=== PATIENT | female | born 1955 | race Caucasian/White ===

== ENCOUNTER 2019-09-25 23:27 | Emergency (ER) | payer MEDICARE, MEDICAID ==
[~2019-09-25] VITALS: Ht 160 cm; Wt 85.7 kg
[~2019-09-25 23:27] MED LIST: ACET325T53 PO; AMLO10TA7 PO; BISA10SU12 PR; CLON0.1T PO; DOCU-270 PO; ENTA200T PO; FAMO-131 PO; HYDR-3974 PO; HYDR28CR48 TOP; IPRA3AMP23 INH; MAGN400O6 PO; MVI PO; NITR0.4T SL; PRED1TAB PO; SENN-18 PO; [UNRECOGNIZED DRUG - CODE] SQ
[2019-09-25 23:45] VITALS: BP 146/87
[2019-09-26] MEDS ORDERED: HYDROCODONE/APAP 5/325MG 1 EACH TABLET PO ONE
[2019-09-26] MEDS ORDERED: HYDROCODONE/APAP 5/325MG 1 EACH TABLET ONE (00:03)
--- NOTE | 2019-09-26 00:15 | NUR ---
REPORT GIVEN TO EVGENY AT [facility].
[2019-10-25] MEDS ORDERED: DOCU-270 PO (14:51)
[2019-10-25] MEDS ORDERED: METH4TAB3 PO (14:51)
[2019-10-25] MEDS ORDERED: APIX5TAB PO (14:51)
== END 2019-09-26 00:17 | disposition home or self-care (01) ==
LOC: ER 23:33
DX: G89.29 Other chronic pain (principal); M79.662 Pain in left lower leg; M79.661 Pain in right lower leg; F03.90 Unspecified dementia, unspecified severity, without behavioral disturbance, psychotic disturbance, mood disturbance, and anxiety; I10 Essential (primary) hypertension; Z88.8 Allergy status to other drugs, medicaments and biological substances; Z79.899 Other long term (current) drug therapy; Z79.01 Long term (current) use of anticoagulants

== ENCOUNTER 2019-10-15 19:55 | Inpatient (IN) | payer MEDICARE, MEDICAID ==
[~2019-10-15] VITALS: Ht 160 cm; Wt 98.4 kg
--- NOTE | 2019-10-15 20:00 | NUR ---
PT BIBPA C/O PRODUCTIVE COUGH WITH CLEAR SPUTUM X1 WEEK. PT ALSO C/O CHEST PAIN WITH COUGH. PT STATES SHE WAS SEEN BY PMD EARLIER THIS WEEK, DX WITH BRONCHITIS AND PRESCRIBED LEVAQUIN, PT STATES SYMPTOMS HAVE NOT RESOLVED. O2 SAT 90% ON ROOM AIR, PT STATES SHE IS NORMALLY 2L NC. PT IS AAOX4. RESPIRATIONS EVEN AND UNLABORED. NO ACUTE DISTRESS NOTED AT THIS TIME. PLACED IN GOWN AND ON MONITOR, WILL CONTINUE TO MONITOR.
[2019-10-15] MEDS ORDERED: Magnesium 1GM/D5W 100ML PREMIX 200 ML IV ONE ×2 (20:47→21:11)
--- NOTE | 2019-10-15 20:55 | NUR ---
RADIOLOGY AT BEDSIDE FOR CXR
--- NOTE | 2019-10-15 20:57 | NUR ---
IV INITIATED RAC 20G. LABS DRAWN FROM SITE. SUGAR COATING HAND AT BEDSIDE FOR COLLECTION. IV INTACT AND PATENT, PLACED ON SALINE LOCK
[2019-10-15] MEDS ORDERED: IV NS 0.9% 1,000 ML BAG IV ONE (21:00)
[2019-10-15] MEDS ORDERED: ALBUTEROL FS 2.5 MG/3 ML VIAL.NEB NEB ONE (21:00)
[2019-10-15] MEDS ORDERED: IPRATROPIUM NEB FS 0.5 MG/2.5 ML AMPUL.NEB NEB ONE (21:00)
[2019-10-15] MEDS ORDERED: methylPREDNISolone SOD SUCC 125 MG/2ML VIAL IV ONE (21:00)
[2019-10-15 21:02] LABS: BASOPHILS % (AUTO) 0.2 % (0.0-2.0); EOSINOPHILS % (AUTO) 1.9 % (0.0-6.0); HEMATOCRIT 40 % (33-45); HEMOGLOBIN 13.3 g/dL (11.5-14.8); LYMPHOCYTES # (AUTO) 0.7 /CMM (0.8-4.8); LYMPHOCYTES % (AUTO) 14.2 % (20.0-44.0); MEAN CORPUSCULAR HGB CONC 33 g/dl (31.0-36.0); MEAN CORPUSCULAR VOLUME 93 fL (82-100); MONOCYTES # (AUTO) 0.4 /CMM (0.1-1.30); MONOCYTES % (AUTO) 7.7 % (2.0-12.0); NEUTROPHILS # (AUTO) 3.9 /CMM (1.8-8.9); PLATELET COUNT (AUTO) 223 /CMM (150-450); RED BLOOD CELL COUNT(AUTO) 4.31 MIL/uL (4.0-5.2); WHITE BLOOD COUNT (AUTO) 5.1 K/uL (4.3-11.0)
[2019-10-15] MEDS ORDERED: ALBUTEROL FS 2.5 MG/3 ML VIAL.NEB ONE (21:03)
[2019-10-15] MEDS ORDERED: IPRATROPIUM NEB FS 0.5 MG/2.5 ML AMPUL.NEB ONE (21:03)
--- NOTE | 2019-10-15 21:09 | NUR ---
RT AT BEDSIDE FOR BREATHING TREATMENT
[2019-10-15 21:10] LABS: CALCIUM, SERUM 9.5 mg/dL (8.5-10.1); CREATININE 0.6 mg/dL (0.6-1.3)
[2019-10-15] MEDS ORDERED: methylPREDNISolone SOD SUCC 125 MG/2ML VIAL ONE (21:11)
--- NOTE | 2019-10-15 21:28 | NUR ---
URINE COLLECTED AND SENT TO LAB
--- NOTE | 2019-10-15 21:30 | NUR ---
PER VERBAL MD ORDER, WILL HOLD 1L NS
[2019-10-15 21:44] LABS: APPEARANCE,URINE Clear (CLEAR); BILIRUBIN,URINE Negative (NEGATIVE); BLOOD, URINE Small Ery/uL (NEGATIVE); COLOR,URINE Yellow (YELLOW); KETONES,URINE Negative (NEGATIVE); LEUKOCYTE ESTERASE ,URINE Negative (NEGATIVE); NITRITE, URINE Negative (NEGATIVE); PROTEIN,URINE Negative (NEGATIVE); UGLUCOSE Negative (NEGATIVE); UROBILINOGEN,URINE 0.2 EU/dL (0.2)
--- NOTE | 2019-10-15 21:49 | NUR ---
DR FRANKLIN HA FOR PANEL
--- NOTE | 2019-10-15 21:55 | NUR ---
CALLED NURSING SUP FOR BED
[2019-10-15 21:57] LABS: BACTERIA,URINE Few /HPF (None Seen); WBC,URINE 0-2 /HPF (0-3)
[2019-10-15 21:58] LABS: SQUAMOUS EPITHELIAL CELL,UR Few /HPF (None Seen)
--- NOTE | 2019-10-15 21:58 | NUR ---
RECIEVED BED 313-2
--- NOTE | 2019-10-15 22:12 | NUR ---
GAVE REPORT TO KIERAN SMART FOR DAX
--- NOTE | 2019-10-15 22:20 | NUR ---
PT TRANSFERRED PER [facility] PROTOCOL
[2019-10-15 22:30] VITALS: BP 155/76
--- NOTE | 2019-10-15 22:40 | NUR ---
CHEESE MAKER NOTE PT ARRIVED TO FLOOR VIA GURNEY ACCOMPANIED BY ER STAFF. PT IN STABLE CONDITION A/O X4, NO SIGNS OF DISTRESS, ON 2LPM NC. IV IN R AC#[address] S/L. TELE MONITOR: SR 95. ALL CURRENT NEEDS ATTENDED TO. BED LOW, LOCKED UPPER RAILS UP AND CALL LIGHT WITHIN REACH. BODY ASSESSED, AND ALL BELONGINGS ACCOUNTED AND SIGNED FOR. MADE AWARE OF PT ARRIVAL. WILL CONT. TO MONITOR.
[2019-10-15] MEDS ORDERED: ACETAMINOPHEN 325 MG TABLET PO PRN (23:00)
[2019-10-15] MEDS ORDERED: ACETAMINOPHEN 325 MG TABLET PO SCH (23:00)
[2019-10-15] MEDS ORDERED: NITROGLYCERIN 0.4 MG/TAB BOTTLE SL PRN (23:00)
[2019-10-15] MEDS ORDERED: BENZONATATE 100 MG CAPSULE PO PRN (23:00)
[2019-10-15] MEDS ORDERED: MAGNESIUM HYDROXIDE 30 ML UDC PO PRN (23:00)
[2019-10-15] MEDS ORDERED: ONDANSETRON HCL/PF 4 MG/2 ML VIAL IVP PRN (23:00)
[2019-10-15] MEDS ORDERED: Z GUARD REMEDY 2 OZ OINT TP PRN (23:00)
[2019-10-15] MEDS ORDERED: ZOLPIDEM TARTRATE 5 MG TABLET PO PRN (23:00)
[2019-10-15] MEDS ORDERED: GUAIFENESIN/D-METHORPHAN HB 5 ML UDC PO PRN (23:00)
[2019-10-15] MEDS: ENOXAPARIN SODIUM 40 MG/0.4 ML DISP.SYRIN SQ SCH (23:06)
[2019-10-15] MEDS ORDERED: LEVOFLOXACIN 500 MG /D5W 100ML 100 ML IV ONE (23:54)
[2019-10-15] MEDS: LEVOFLOXACIN 500 MG /D5W 100ML 500 MG in PREMIX 1 EA IV SCH (23:57)
[2019-10-15] MEDS: methylPREDNISolone SOD SUCC 40 MG/ML VIAL IV SCH (23:57)
[2019-10-16] VITALS: BP 151/79
[2019-10-16] MEDS ORDERED: Medication Not On Formulary EA (Ipratropium/Albuterol Sulfate (Duoneb 2.5-0.5 Mg/3 Ml So INH SCH
[2019-10-16] MEDS ORDERED: HYDROCODONE/APAP 5/325MG 1 EACH TABLET PO SCH
--- NOTE | 2019-10-16 00:02 | NUR ---
STORE CONSULTANT NOTE MADE MD AWARE OF DNR CODE STATUS. STATES HE WILL PUT ORDER IN.
[2019-10-16] MEDS: ALBUTEROL HALF STRENGTH 1.25 MG/3 ML VIAL.NEB NEB SCH ×5 (00:19→19:25)
--- NOTE | 2019-10-16 01:18 | NUR ---
VISUAL INSPECTOR NOTE NOTIFIED MD THAT PT IS STILL SHORT OF BREATH. NEW ORDERS NOTED AND CARRIED OUT. WILL ENDORSE TO RT. AND CONT TO MONITOR.
[2019-10-16] MEDS: ALBUTEROL FS 2.5 MG/3 ML VIAL.NEB NEB SCH ×3 (01:32→02:08)
[2019-10-16] MEDS: IPRATROPIUM NEB FS 0.5 MG/2.5 ML AMPUL.NEB NEB SCH ×3 (01:32→02:08)
[2019-10-16] MEDS: ACETYLCYSTEINE 10% SOLN 400 MG/4 ML VIAL NEB SCH ×4 (01:32→23:30)
--- NOTE | 2019-10-16 02:28 | NUR ---
RT NOTE ADMINISTERED 3 DOSES OF ALBUTEROL 2.5 MG AND ATROVENT 0.5 MG TX'S PER MD ORDER. NO ADVERSE REACTIONS NOTED. NO DISTRESS NOTED AT THIS TIME. WILL REMAIN ON 28% NASAL CANNULA.
[2019-10-16] MEDS: LORAZEPAM INJ 2 MG/ML VIAL IV PRN ×2 (03:20→21:20)
--- NOTE | 2019-10-16 03:20 | NUR ---
MS RN NOTE PT REQUESTED FOR ATIVAN FOR ANXIETY. ATIVAN GIVEN ORDERED BY MD.
--- NOTE | 2019-10-16 06:18 | NUR ---
MS RN NOTE PT IN STABLE CONDITION A/O X4, NO SIGNS OF DISTRESS, ON 2LPM NC, TOLERATING WELL. PT STATES BREATHING IS BETTER. STATES SHE HAS RESTLESS LEG SYNDROME. IV IN R AC#[address] S/L. ALL CURRENT NEEDS ATTENDED TO. BED LOW, LOCKED UPPER RAILS UP AND CALL LIGHT WITHIN REACH AND ENDORSE TO NEXT SHIFT FOR DAX.
[2019-10-16 07:36] LABS: CALCIUM, SERUM 9.3 mg/dL (8.5-10.1); CREATININE 0.7 mg/dL (0.6-1.3); HEMATOCRIT 41 % (33-45); HEMOGLOBIN 13.6 g/dL (11.5-14.8); LYMPHOCYTES # (AUTO) 0.2 /CMM (0.8-4.8); LYMPHOCYTES % (AUTO) 4.9 % (20.0-44.0); MAGNESIUM 2.3 mg/dL (1.8-2.4); MEAN CORPUSCULAR HGB CONC 33 g/dl (31.0-36.0); MEAN CORPUSCULAR VOLUME 93 fL (82-100); MONOCYTES # (AUTO) 0.1 /CMM (0.1-1.30); MONOCYTES % (AUTO) 2.1 % (2.0-12.0); NEUTROPHILS # (AUTO) 3.3 /CMM (1.8-8.9); PHOSPHORUS 3.1 mg/dL (2.5-4.9); PLATELET COUNT (AUTO) 224 /CMM (150-450); POTASSIUM 3.7 mmol/L (3.5-5.1); RED BLOOD CELL COUNT(AUTO) 4.39 MIL/uL (4.0-5.2); WHITE BLOOD COUNT (AUTO) 3.5 K/uL (4.3-11.0)
[2019-10-16 08:00] VITALS: BP 152/99
[2019-10-16] MEDS: methylPREDNISolone SOD SUCC 40 MG/ML VIAL IV SCH ×3 (08:28→22:11)
[2019-10-16] MEDS: AMLODIPINE BESYLATE 10 MG TABLET PO SCH (08:30)
[2019-10-16] MEDS ORDERED: ENTACAPONE 200 MG TABLET PO SCH (09:00)
[2019-10-16] MEDS ORDERED: HEPARIN SODIUM, PORCINE 5000 UNITS/1 ML VIAL SQ SCH (09:00)
[2019-10-16] MEDS ORDERED: FAMOTIDINE (20 MG) 20 MG TABLET PO SCH (09:00)
[2019-10-16] MEDS ORDERED: BISACODYL SUPP (10 MG) 10 MG/SUPP.RECT SUPP.RECT RC PRN (09:00)
[2019-10-16] MEDS ORDERED: DOCUSATE SODIUM 250 MG CAPSULE PO SCH (09:00)
[2019-10-16] MEDS ORDERED: BISACODYL SUPP (10 MG) 10 MG/SUPP.RECT SUPP.RECT RC SCH (09:00)
[2019-10-16] MEDS ORDERED: predniSONE 1 MG TABLET PO SCH (09:00)
[2019-10-16] MEDS ORDERED: SENNOSIDES 8.6 MG TABLET PO SCH (09:00)
[2019-10-16] MEDS ORDERED: PANT40TA2 PO (09:08)
[2019-10-16] MEDS ORDERED: ACET-868 PO (09:08)
[2019-10-16] MEDS ORDERED: FLUO20CA36 PO (09:08)
[2019-10-16] MEDS ORDERED: TRAM50TA2 PO (09:08)
[2019-10-16] MEDS ORDERED: GABA-534 PO (09:08)
[2019-10-16] MEDS ORDERED: MELA5TAB PO (09:08)
[2019-10-16] MEDS ORDERED: NA P133E RC (09:08)
[2019-10-16] MEDS ORDERED: MAG30ORA PO (09:08)
[2019-10-16] MEDS ORDERED: FLUT1BLS IH (09:08)
[2019-10-16] MEDS ORDERED: APIX2.5T PO (09:08)
[2019-10-16] MEDS ORDERED: MULT-447 PO (09:08)
[2019-10-16] MEDS ORDERED: LEVO750T21 PO (09:08)
[2019-10-16] MEDS ORDERED: LORA-259 PO (09:08)
[2019-10-16] MEDS ORDERED: ARIP10TA9 PO (09:08)
[2019-10-16] MEDS ORDERED: GUAI100S11 PO (09:08)
[2019-10-16] MEDS ORDERED: FLUT16SP BNOSTRILS (09:08)
[2019-10-16] MEDS ORDERED: IBUP-1953 PO (09:08)
[2019-10-16] MEDS ORDERED: FURO-145 PO (09:08)
--- NOTE | 2019-10-16 09:15 | NUR ---
Home medications list updated. DR De La Rosa notified.
[2019-10-16] MEDS ORDERED: MAGNESIUM HYDROXIDE 30 ML UDC PO PRN (11:30)
[2019-10-16] MEDS: CLONIDINE HCL 0.1 MG TABLET PO SCH ×2 (15:20→17:00)
[2019-10-16 16:00] VITALS: BP 100/69
--- NOTE | 2019-10-16 18:44 | NUR ---
Patient resting in bed , awake alert and oriented x4. PAtient on O2 2l via nasal canula saturating above 96%. VS are stable and within baseline, afebrile. All needs attended, breathing treatment provided. Patient kept clean and dry. SAfety precautions in place and call light within reach. Will endorse to next shift for DAX
--- NOTE | 2019-10-16 19:30 | NUR ---
RN OPEN NOTES RECEIVED AWAKE IN BED. A/OX4. NO SIGNS OF DISTRESS OR DISCOMFORT. BREATHING EVEN AND UNLABORED. ON 2LPM O2 VIA NC. IV ACCESS IN RAC, PATENT AND INTACT, NO SIGNS OF REDNESS OR INFILTRATION. BED IN LOW LOCKED POSITION WITH SIDE RAILS X2. CALL LIGHT WITHIN REACH. WILL CONTINUE TO MONITOR.
[2019-10-16 20:00] VITALS: BP 163/89
[2019-10-16] MEDS: MAG HYDROX/AL HYDROX/SIMETH 30 ML UDC PO PRN (21:20)
--- NOTE | 2019-10-16 21:20 | NUR ---
RN NOTES ADMINISTERED ATIVAN 2MG FOR ANXIETY AND MAALOX 30ML FOR INDIGESTION, ORDERED, AT PATIENT REQUEST. VSS. WILL CONTINUE TO MONITOR.
[2019-10-16] MEDS ORDERED: MAGNESIUM HYDROXIDE 30 ML UDC PO SCH (22:00)
[2019-10-16] MEDS ORDERED: DOCUSATE SODIUM 100 MG CAPSULE PO SCH (22:00)
[2019-10-16] MEDS: HYDROCODONE/APAP 5/325MG 1 EACH TABLET PO PRN (22:08)
[2019-10-16] MEDS: LEVOFLOXACIN 500 MG /D5W 100ML 500 MG in PREMIX 1 EA IV SCH (22:08)
--- NOTE | 2019-10-16 22:08 | NUR ---
RN NOTES ADMINISTERED NORCO 5/325 ORDERED FOR HEADACHE AND LEG PAIN 06/05, AT PATIENT REQUEST. VSS. WILL CONTINUE TO MONITOR.
[2019-10-16] MEDS: ENOXAPARIN SODIUM 40 MG/0.4 ML DISP.SYRIN SQ SCH (22:09)
[2019-10-17] MEDS: ALBUTEROL FS 2.5 MG/0.5 ML VIAL.NEB NEB PRN ×2 (01:46→23:04)
[2019-10-17] MEDS: IPRATROPIUM NEB FS 0.5 MG/2.5 ML AMPUL.NEB NEB PRN ×2 (01:47→23:04)
[2019-10-17] MEDS: IBUPROFEN 600 MG TABLET PO PRN ×2 (03:32→23:59)
--- NOTE | 2019-10-17 03:32 | NUR ---
RN NOTES ADMINISTERED MOTRIN 600MG ORDERED FOR HEADACHE AND GENERALIZED PAIN 06/05, AT PATIENT REQUEST. VSS. WILL CONTINUE TO MONITOR.
--- NOTE | 2019-10-17 07:00 | NUR ---
MS/RN Opening Note Pt received AO x 4, able to response all stimuli. Pt is on N/C at 2L/min, no respiratory distress observed, skin is warm to touch, clean/dry, intact IV site. Kept low positioned bed, and elevated HOB for air way. Call light within reach, will continue to monitor.
[2019-10-17] MEDS: ACETYLCYSTEINE 10% SOLN 400 MG/4 ML VIAL NEB SCH ×3 (07:22→23:04)
[2019-10-17] MEDS: ALBUTEROL HALF STRENGTH 1.25 MG/3 ML VIAL.NEB NEB SCH ×4 (07:22→19:35)
--- NOTE | 2019-10-17 07:32 | NUR ---
RN CLOSING NOTES PATIENT AWAKE IN BED. A/OX4. NO SIGNS OF DISTRESS OR DISCOMFORT. BREATHING EVEN AND UNLABORED. ON 2LPM O2 VIA NC. IV ACCESS IN RAC, PATENT AND INTACT, NO SIGNS OF REDNESS OR INFILTRATION. ALL NEEDS MET. NO SIGNIFICANT CHANGES THROUGH THE NIGHT. BED IN LOW LOCKED POSITION WITH SIDE RAILS X2. CALL LIGHT WITHIN REACH. ENDORSED TO AM SHIFT FOR DAX.
[2019-10-17 08:00] VITALS: BP 170/96
[2019-10-17] MEDS ORDERED: IBUPROFEN 400 MG TABLET PO PRN (08:00)
[2019-10-17] MEDS ORDERED: LORAZEPAM 1 MG TABLET PO PRN (08:00)
[2019-10-17] MEDS ORDERED: Medication Not On Formulary EA (Melatonin 5 MG) PO PRN (08:00)
[2019-10-17] MEDS ORDERED: TRAMADOL HCL 50 MG TABLET PO PRN (08:00)
[2019-10-17] MEDS ORDERED: MULTIVITAMINS,THERAGRAN 1 UDTAB TABLET PO SCH (09:00)
[2019-10-17] MEDS: methylPREDNISolone SOD SUCC 40 MG/ML VIAL IV SCH ×3 (09:22→22:41)
[2019-10-17] MEDS: AMLODIPINE BESYLATE 10 MG TABLET PO SCH (09:22)
[2019-10-17] MEDS: GABAPENTIN 300 MG CAPSULE PO SCH (09:23)
[2019-10-17] MEDS: MULTIVIT W/MINERALS 1 TAB TABLET PO SCH (09:23)
[2019-10-17] MEDS: CLONIDINE HCL 0.1 MG TABLET PO SCH ×3 (09:24→16:39)
[2019-10-17] MEDS: FLUOXETINE HCL 20 MG CAPSULE PO SCH (09:27)
[2019-10-17] MEDS: FLUTICASONE PROPIONATE 16 GM BOTTLE NS SCH (09:28)
[2019-10-17] MEDS: ARIPIPRAZOLE 2 MG TABLET PO SCH (09:28)
[2019-10-17] MEDS: FLUTICASONE/VILANTEROL 1 EACH BLST.W.DEV IH SCH (09:29)
[2019-10-17] MEDS: APIXABAN 2.5 MG TABLET PO SCH ×2 (09:30→16:40)
[2019-10-17] MEDS: MAG HYDROX/AL HYDROX/SIMETH 30 ML UDC PO PRN ×2 (10:24→16:38)
[2019-10-17 16:00] VITALS: BP 137/91
--- NOTE | 2019-10-17 17:00 | NUR ---
patient positive for MRSA nares . Care plan implemented
[2019-10-17] MEDS ORDERED: BISACODYL SUPP (10 MG) 10 MG/SUPP.RECT SUPP.RECT RC PRN (19:00)
--- NOTE | 2019-10-17 19:00 | NUR ---
MS/RN Closing note Pt in bed comfortably, no c/o pain or discomfort. Skin is warm to touch, provided sathish care, respiratory even and unlabored. Intact IV site, kept low position of bed and elevated HOB for airway. Call light within reach, will endorse shift coordinator.
[2019-10-17 20:00] VITALS: BP 146/86
[2019-10-17] MEDS: MUPIROCIN OINT 2% 22 GM TUBE SCH (21:31)
[2019-10-17] MEDS: DOCUSATE SODIUM 100 MG CAPSULE PO SCH (21:32)
[2019-10-17] MEDS: LORAZEPAM INJ 2 MG/ML VIAL IV PRN (22:41)
[2019-10-17] MEDS: LEVOFLOXACIN 500 MG /D5W 100ML 500 MG in PREMIX 1 EA IV SCH (22:41)
[2019-10-18] MEDS: HYDROCODONE/APAP 5/325MG 1 EACH TABLET PO PRN (02:32)
[2019-10-18] MEDS: IPRATROPIUM NEB FS 0.5 MG/2.5 ML AMPUL.NEB NEB PRN (05:30)
[2019-10-18] MEDS: ALBUTEROL FS 2.5 MG/0.5 ML VIAL.NEB NEB PRN (05:30)
--- NOTE | 2019-10-18 07:16 | NUR ---
MS RN OPENING NOTES RECEIVED PT AWAKE IN BED IN NO ACUTE SIGNS OF DISTRESS. HOB ELEVATED. A/OX4. ABLE TO MAKE NEEDS KNOWN, DENIES PAIN OR ANY DISCOMFORTS AT THIS TIME. ON 02 @ 2LPM VIA N/C. TOLERATING WELL. IV ACCESS IN RAC G#20 PATENT AND INTACT, NO SIGNS OF REDNESS OR INFILTRATION AT SITE NOTED. BED IN LOW LOCKED POSITION WITH SIDE RAILS UPX2. CALL LIGHT WITHIN REACH. WILL CONTINUE TO MONITOR.
[2019-10-18] MEDS: methylPREDNISolone SOD SUCC 40 MG/ML VIAL IV SCH ×2 (07:28→15:06)
[2019-10-18] MEDS ORDERED: PANTOPRAZOLE 40 MG TABLET.DR PO SCH (07:30)
[2019-10-18] MEDS: ALBUTEROL HALF STRENGTH 1.25 MG/3 ML VIAL.NEB NEB SCH ×3 (07:56→15:23)
[2019-10-18] MEDS: ACETYLCYSTEINE 10% SOLN 400 MG/4 ML VIAL NEB SCH ×2 (07:57→15:23)
[2019-10-18 08:00] VITALS: BP 147/106
[2019-10-18] MEDS: ARIPIPRAZOLE 2 MG TABLET PO SCH (08:43)
[2019-10-18] MEDS: APIXABAN 2.5 MG TABLET PO SCH (08:45)
[2019-10-18] MEDS: FLUTICASONE PROPIONATE 16 GM BOTTLE NS SCH (08:46)
[2019-10-18] MEDS: FLUTICASONE/VILANTEROL 1 EACH BLST.W.DEV IH SCH (08:46)
[2019-10-18] MEDS: AMLODIPINE BESYLATE 10 MG TABLET PO SCH (08:51)
[2019-10-18] MEDS: CLONIDINE HCL 0.1 MG TABLET PO SCH ×2 (08:51→13:20)
[2019-10-18] MEDS: DOCUSATE SODIUM 100 MG CAPSULE PO SCH (08:51)
[2019-10-18] MEDS: MULTIVIT W/MINERALS 1 TAB TABLET PO SCH (08:51)
[2019-10-18] MEDS: FLUOXETINE HCL 20 MG CAPSULE PO SCH (08:51)
[2019-10-18] MEDS: MUPIROCIN OINT 2% 22 GM TUBE SCH (08:52)
[2019-10-18] MEDS: GABAPENTIN 300 MG CAPSULE PO SCH (08:52)
[2019-10-18] MEDS: MAG HYDROX/AL HYDROX/SIMETH 30 ML UDC PO PRN (10:18)
[2019-10-18 13:20] VITALS: BP 135/62
--- NOTE | 2019-10-18 14:34 | NUR ---
RN NOTES PT FOR DISCHARGE TO [facility] THIS AFTERNOON. CALLED AND REPORT GIVEN TO RNS ANTONIO. PT'S ADOPTED GRANDDAUGHTER SHARON TIM CALLED AND INFORMED BY PT THAT SHE WILL BE DISCHARGE TODAY.
--- NOTE | 2019-10-18 16:12 | NUR ---
RN DISCHARGED NOTES PT DISCHARGED TO [facility] IN STABLE CONDITION. A/O X4, SAME ABLE TO MAKE NEEDS KNOWN. ALL NEEDS AND PROVIDED WELL. V/S TAKEN AND RECORDED. PHOTOS OF SKIN ISSUES TAKEN AND FILED IN CHART. IV ACCESS ON RAC G #20 NOT REMOVED, PT WILL CONTINUE TO TAKE IV ATB LEVAQUIN AT SNF X 7DAYS ONCE DAILY. HEALTH TEACHINGS GIVEN TO PT AND VERBALIZED UNDERSTANDING. REPORT/ DISCHARGE INSTRUCTIONS GIVEN TO RNS SARITHA OF [facility]. PT LEFT UNIT ON PORTABLE 02 VIA N/C @ 2LPM AT 1600 VIA MARLYN ACCOMPANIED BY 2 CODING TECHNICIAN. MD AND CHARGE NURSE AWARE OF DISCHARGE.
[2019-10-19] MEDS ORDERED: ACET100V5 NEB (12:43)
[2019-10-19] MEDS ORDERED: ALBU2.5V38 IH (12:43)
[2019-10-19] MEDS ORDERED: ALBU1.257 IH (12:43)
[2019-10-19] MEDS ORDERED: BENZ-13 PO (12:43)
[2019-10-19] MEDS ORDERED: NITR0.4T48 SL (12:43)
[2019-10-19] MEDS ORDERED: LEVO500P10 IV (12:43)
[2019-10-19] MEDS ORDERED: IPRA0.2S9 IH (12:43)
[2019-10-19] MEDS ORDERED: ALLA266C2 TP (12:43)
[2019-10-19] MEDS ORDERED: ZOLP5TAB8 PO (12:43)
[2019-10-19] MEDS ORDERED: MUPI22OI7 (12:43)
== END 2019-10-18 16:15 | DRG 189 ==
LOC: ER 19:56 → TELE 22:00 → MED 10-16 02:11
PROVIDERS: ADMIT Hospitalist; ATTEND Internal Medicine
DX: J96.01 Acute respiratory failure with hypoxia (principal); J44.1 Chronic obstructive pulmonary disease with (acute) exacerbation; I69.354 Hemiplegia and hemiparesis following cerebral infarction affecting left non-dominant side; J44.0 Chronic obstructive pulmonary disease with (acute) lower respiratory infection; J98.11 Atelectasis; J20.9 Acute bronchitis, unspecified; J96.02 Acute respiratory failure with hypercapnia; E66.01 Morbid (severe) obesity due to excess calories; I10 Essential (primary) hypertension; Z66 Do not resuscitate; F03.90 Unspecified dementia, unspecified severity, without behavioral disturbance, psychotic disturbance, mood disturbance, and anxiety; Z79.899 Other long term (current) drug therapy; Z88.8 Allergy status to other drugs, medicaments and biological substances; F41.9 Anxiety disorder, unspecified; F31.9 Bipolar disorder, unspecified; Z79.01 Long term (current) use of anticoagulants; Z79.51 Long term (current) use of inhaled steroids; Z82.49 Family history of ischemic heart disease and other diseases of the circulatory system; Z99.81 Dependence on supplemental oxygen; Z87.891 Personal history of nicotine dependence; Z86.711 Personal history of pulmonary embolism
CPT/HCPCS: 36415; 71045-TC; 80048-TC; 80061-TC; 81000-TC; 83735-TC; 84100-TC; 85025-TC; 87081-TC; 94799-TC; 97112-TC; 97530-TC; A4216; G0378; J1650; J1956; J2060; J2920; J2930; J3475; J7030; J7050; J7512

== ENCOUNTER 2019-10-19 12:02 | Emergency (ER) | payer MEDICARE, OTHER ==
[~2019-10-19] VITALS: Ht 160 cm; Wt 86.2 kg
[~2019-10-19 12:02] MED LIST changes: +ACET-868 PO; +APIX2.5T PO; +ARIP10TA9 PO; -ENTA200T PO; -FAMO-131 PO; +FLUO20CA36 PO; +FLUT16SP BNOSTRILS; +FLUT1BLS IH; +FURO-145 PO; +GABA-534 PO; +GUAI100S11 PO; -HYDR-3974 PO; -HYDR28CR48 TOP; +IBUP-1953 PO; +LEVO750T21 PO; +LORA-259 PO; +MAG30ORA PO; +MELA5TAB PO; +MULT-447 PO; -MVI PO; +NA P133E RC; -NITR0.4T SL; +PANT40TA2 PO; -PRED1TAB PO; -SENN-18 PO; +TRAM50TA2 PO; -[UNRECOGNIZED DRUG - CODE] SQ
[2019-10-19 12:13] VITALS: BP 139/95
[2019-10-19] MEDS ORDERED: MUPI22OI7 (12:43)
[2019-10-19] MEDS ORDERED: IPRA0.2S9 IH (12:43)
[2019-10-19] MEDS ORDERED: ALBU2.5V38 IH (12:43)
[2019-10-19] MEDS ORDERED: NITR0.4T48 SL (12:43)
[2019-10-19] MEDS ORDERED: ZOLP5TAB8 PO (12:43)
[2019-10-19] MEDS ORDERED: LEVO500P10 IV (12:43)
[2019-10-19] MEDS ORDERED: ALBU1.257 IH (12:43)
[2019-10-19] MEDS ORDERED: ACET100V5 NEB (12:43)
[2019-10-19] MEDS ORDERED: ALLA266C2 TP (12:43)
[2019-10-19] MEDS ORDERED: BENZ-13 PO (12:43)
[2019-10-19] MEDS ORDERED: ALBUTEROL FS 2.5 MG/3 ML VIAL.NEB ONE (12:54)
[2019-10-19] MEDS ORDERED: IPRATROPIUM NEB FS 0.5 MG/2.5 ML AMPUL.NEB ONE (12:54)
[2019-10-19 12:56] LABS: BASOPHILS % (AUTO) 0.2 % (0.0-2.0); EOSINOPHILS % (AUTO) 0.7 % (0.0-6.0); HEMATOCRIT 43 % (33-45); HEMOGLOBIN 14.3 g/dL (11.5-14.8); LYMPHOCYTES # (AUTO) 1.3 /CMM (0.8-4.8); LYMPHOCYTES % (AUTO) 19.9 % (20.0-44.0); MEAN CORPUSCULAR HGB CONC 33 g/dl (31.0-36.0); MEAN CORPUSCULAR VOLUME 93 fL (82-100); MONOCYTES # (AUTO) 0.6 /CMM (0.1-1.30); MONOCYTES % (AUTO) 9.5 % (2.0-12.0); NEUTROPHILS # (AUTO) 4.5 /CMM (1.8-8.9); NEUTROPHILS % (AUTO) 69.7 % (43.0-81.0); PLATELET COUNT (AUTO) 270 /CMM (150-450); RED BLOOD CELL COUNT(AUTO) 4.65 MIL/uL (4.0-5.2); WHITE BLOOD COUNT (AUTO) 6.4 K/uL (4.3-11.0)
[2019-10-19] MEDS ORDERED: ALBUTEROL FS 2.5 MG/3 ML VIAL.NEB NEB ONE (13:00)
[2019-10-19] MEDS ORDERED: IPRATROPIUM NEB FS 0.5 MG/2.5 ML AMPUL.NEB NEB ONE (13:00)
[2019-10-19 13:06] LABS: CALCIUM, SERUM 9.3 mg/dL (8.5-10.1); CARBON DIOXIDE 33 mmol/L (21-32); CHLORIDE 102 mmol/L (98-107); CREATININE 0.6 mg/dL (0.6-1.3); GLUCOSE 84 mg/dL (74-106); POTASSIUM 3.5 mmol/L (3.5-5.1); SODIUM SERUM 139 mmol/L (136-145); UREA NITROGEN, BLOOD 19 mg/dL (7-18)
[2019-10-19 13:11] LABS: ALANINE AMINOTRANSFERASE 46 U/L (12-78); ALBUMIN 3.5 g/dL (3.4-5.0); ALCOHOL, BLOOD < 3 mg/dL (0-0); ALKALINE PHOSPHATASE 118 U/L (46-116); ASPARTATE AMINOTRANSFERASE 16 U/L (15-37); BILIRUBIN,DIRECT 0.1 mg/dL (0.0-0.2); BILIRUBIN,TOTAL 0.3 mg/dL (0.2-1.0); SALICYLATE 1.1 mg/dL (2.8-20.0); TOTAL PROTEIN, SERUM 6.9 g/dL (6.4-8.2)
--- NOTE | 2019-10-19 14:09 | NUR ---
URINE COLLECTED AND SENT TO LAB
[2019-10-19 14:16] LABS: APPEARANCE,URINE Clear (CLEAR); BILIRUBIN,URINE Negative (NEGATIVE); BLOOD, URINE Trace-intact Ery/uL (NEGATIVE); COLOR,URINE Yellow (YELLOW); KETONES,URINE Negative (NEGATIVE); LEUKOCYTE ESTERASE ,URINE Negative (NEGATIVE); NITRITE, URINE Negative (NEGATIVE); PROTEIN,URINE Negative (NEGATIVE); UGLUCOSE Negative (NEGATIVE); UROBILINOGEN,URINE 0.2 EU/dL (0.2)
[2019-10-19 14:30] LABS: BACTERIA,URINE None seen /HPF (None Seen); MUCUS,URINE Moderate /LPF (None Seen); SQUAMOUS EPITHELIAL CELL,UR None Seen /HPF (None Seen); URINE AMORPHOUS URATE Moderate /HPF (None Seen); WBC,URINE 0-2 /HPF (0-3)
--- NOTE | 2019-10-19 14:59 | NUR ---
CALLED [facility] [phone]
--- NOTE | 2019-10-19 15:54 | NUR ---
Patient awake alert non distress made aware paln of care denies SI vitals taken and filed
--- NOTE | 2019-10-19 16:09 | NUR ---
CALLED [facility] TO CALL US BACK.
--- NOTE | 2019-10-19 16:31 | NUR ---
CALLED TRANSPORT [facility] [phone] ETA 1830 TRIP # [id number]
--- NOTE | 2019-10-19 16:35 | NUR ---
CALLED TRANSPORT [facility]... ETA 2100
--- NOTE | 2019-10-19 17:30 | NUR ---
called kitchen for food tray
--- NOTE | 2019-10-19 18:08 | NUR ---
Called REport to [facility] rehab center spoke to Philly Covarrubias mill house supervisor made aware patient is Dc home back to Facility ETA 2102
--- NOTE | 2019-10-19 18:11 | NUR ---
Facility number [phone]
== END 2019-10-19 19:20 | disposition home or self-care (01) ==
LOC: ER 12:04
DX: R45.851 Suicidal ideations (principal); J44.9 Chronic obstructive pulmonary disease, unspecified; F03.90 Unspecified dementia, unspecified severity, without behavioral disturbance, psychotic disturbance, mood disturbance, and anxiety; I10 Essential (primary) hypertension; Z85.3 Personal history of malignant neoplasm of breast; Z88.8 Allergy status to other drugs, medicaments and biological substances; Z79.899 Other long term (current) drug therapy; Z86.73 Personal history of transient ischemic attack (TIA), and cerebral infarction without residual deficits
CPT/HCPCS: 36415; 71045; 80048; 80076; 80305; 80307; 80329; 81001; 85025; 94640; 99284; G0480; 81000-TC

== ENCOUNTER 2019-10-22 04:19 | Inpatient (IN) | payer MEDICARE, MEDICAID ==
[~2019-10-22] VITALS: Ht 167.6 cm; Wt 96.2 kg
[2019-10-22] VITALS: BP 128/80
[~2019-10-22 04:19] MED LIST changes: -ACET-868 PO; +ACET100V5 NEB; -ACET325T53 PO; +ALBU1.257 IH; +ALBU2.5V38 IH; +ALLA266C2 TP; +BENZ-13 PO; -FURO-145 PO; +IPRA0.2S9 IH; -IPRA3AMP23 INH; +LEVO500P10 IV; -LEVO750T21 PO; -MELA5TAB PO; +MUPI22OI7; -NA P133E RC; +NITR0.4T48 SL; +ZOLP5TAB8 PO
[2019-10-22] MEDS ORDERED: ALBUTEROL FS 2.5 MG/3 ML VIAL.NEB NEB ONE ×3 (04:30→06:30)
[2019-10-22] MEDS ORDERED: IPRATROPIUM NEB FS 0.5 MG/2.5 ML AMPUL.NEB NEB ONE ×3 (04:30→06:30)
--- NOTE | 2019-10-22 04:30 | NUR ---
RAPID INFLUENZA DONE AND SENT TO LAB.
--- NOTE | 2019-10-22 04:30 | NUR ---
PT BIB RA39 WITH A C/O COUGH W/CONGESTION. PT IS TACHYPNEIC, SHALLOW BREATHING, 93% ON 3L. PT IS C/O CHEST PAIN WITH COUGH AND C/O WHEEZING. PT HAS A 24G IV IN LFA THAT IS NOT FUNCTIONING. 20G IV STARTED IN LUE. BLOOD WAS DRAWN AND SENT TO LAB.
[2019-10-22] MEDS ORDERED: ALBUTEROL FS 2.5 MG/3 ML VIAL.NEB ONE ×3 (04:33→06:09)
[2019-10-22] MEDS ORDERED: IPRATROPIUM NEB FS 0.5 MG/2.5 ML AMPUL.NEB ONE ×3 (04:33→06:10)
--- NOTE | 2019-10-22 04:37 | NUR ---
RT AT BEDSIDE TO ADMINSTER BREATHING TREATMENT.
[2019-10-22] MEDS ORDERED: methylPREDNISolone SOD SUCC 125 MG/2ML VIAL ONE (04:42)
[2019-10-22 04:43] LABS: BASOPHILS % (AUTO) 0.2 % (0.0-2.0); EOSINOPHILS % (AUTO) 0.3 % (0.0-6.0); HEMATOCRIT 43 % (33-45); HEMOGLOBIN 14.5 g/dL (11.5-14.8); LYMPHOCYTES # (AUTO) 0.2 /CMM (0.8-4.8); LYMPHOCYTES % (AUTO) 2.5 % (20.0-44.0); MEAN CORPUSCULAR HGB CONC 34 g/dl (31.0-36.0); MEAN CORPUSCULAR VOLUME 93 fL (82-100); MONOCYTES # (AUTO) 0.2 /CMM (0.1-1.30); MONOCYTES % (AUTO) 2.9 % (2.0-12.0); NEUTROPHILS # (AUTO) 7.4 /CMM (1.8-8.9); NEUTROPHILS % (AUTO) 94.1 % (43.0-81.0); PLATELET COUNT (AUTO) 225 /CMM (150-450); RED BLOOD CELL COUNT(AUTO) 4.62 MIL/uL (4.0-5.2); WHITE BLOOD COUNT (AUTO) 7.8 K/uL (4.3-11.0)
--- NOTE | 2019-10-22 04:45 | NUR ---
CAITLYN ENGINE REPAIRER PRODUCTION, AT THE BEDSIDE FOR CXR.
[2019-10-22 04:49] LABS: CALCIUM, SERUM 8.5 mg/dL (8.5-10.1); CARBON DIOXIDE 32 mmol/L (21-32); CHLORIDE 103 mmol/L (98-107); CREATININE 0.7 mg/dL (0.6-1.3); GLUCOSE 108 mg/dL (74-106); POTASSIUM 3.6 mmol/L (3.5-5.1); SODIUM SERUM 139 mmol/L (136-145); UREA NITROGEN, BLOOD 25 mg/dL (7-18)
--- NOTE | 2019-10-22 04:50 | NUR ---
COLLECTED URINE SPECIMEN VIA STRAIGHT CATH IN STERILE TECHNIQUE. PT TOLERATED WELL AND SENT TO LAB.
[2019-10-22] MEDS ORDERED: methylPREDNISolone SOD SUCC 125 MG/2ML VIAL IV ONE (05:00)
[2019-10-22 05:01] LABS: B-TYPE NATRIURETIC PEPTIDE 74 PG/ML (0-125)
[2019-10-22] MEDS ORDERED: LORAZEPAM INJ 2 MG/ML VIAL ONE (05:14)
--- NOTE | 2019-10-22 05:25 | NUR ---
ATIVAN GIVEN ORDERED FOR ANXIETY M/B RESTLESSNESS AND HYPERVENTILATION LEADING TO SOB. WILL CONTINUE TO MONITOR.
[2019-10-22] MEDS ORDERED: LORAZEPAM INJ 2 MG/ML VIAL IV ONE (05:30)
--- NOTE | 2019-10-22 05:30 | NUR ---
PT VERBALIZES RELIEF AFTER ATIVAN ADMINISTRATION AND UNDERGOING ANOTHER BREATHING TX.
[2019-10-22 05:45] LABS: APPEARANCE,URINE Clear (CLEAR); BILIRUBIN,URINE Negative (NEGATIVE); BLOOD, URINE Moderate Ery/uL (NEGATIVE); COLOR,URINE Yellow (YELLOW); KETONES,URINE Trace (NEGATIVE); LEUKOCYTE ESTERASE ,URINE Negative (NEGATIVE); NITRITE, URINE Negative (NEGATIVE); PH,URINE 5.5 (5.0-8.0); PROTEIN,URINE 30 mg/dl (NEGATIVE); UGLUCOSE Negative (NEGATIVE); UROBILINOGEN,URINE 0.2 EU/dL (0.2)
[2019-10-22 05:54] LABS: BACTERIA,URINE Few /HPF (None Seen); RBC,URINE 21-50 /HPF (0-2); SQUAMOUS EPITHELIAL CELL,UR Few /HPF (None Seen)
--- NOTE | 2019-10-22 07:04 | NUR ---
ROOM GIVEN TO [id number]
--- NOTE | 2019-10-22 07:05 | NUR ---
REPORT GIVEN TO BING MELVIN WT EMPHASIS THAT PT IS A DNR WT SELECT FOCUSED TREATMENT.
[2019-10-22] MEDS ORDERED: FLUT1BLS IH (07:18)
[2019-10-22] MEDS ORDERED: NA P133E RC (07:18)
[2019-10-22] MEDS ORDERED: CRAN400C PO (07:18)
[2019-10-22] MEDS ORDERED: FURO20TA4 PO (07:42)
[2019-10-22] MEDS ORDERED: MELA5TAB PO (07:42)
[2019-10-22] MEDS ORDERED: TYL2T PO (07:46)
[2019-10-22] MEDS ORDERED: CRAN3875 PO (07:46)
[2019-10-22] MEDS ORDERED: ACET-73 PO ×2 (07:46)
[2019-10-22 08:00] VITALS: BP 146/95
--- NOTE | 2019-10-22 08:51 | NUR ---
AIRCRAFT RESTORER NOTES PATIENT IS A/O X 4 . PATIENT IS COOPERATIVE. PATIENT IS ON 2LPM PATIENT IS SATURATING WELL AT 93 % . PATIENT HAS SOB , AND BREATHING IS SHALLOW. PATIENT IS CURRENTLY INTERMITTENTLY ASLEEP BUT IS EASILY WOKEN. PATIENT SHOWS NO SKIN ISSUES. PATIENT HAS LOWER EXTREMITIES EXTENSION. WAITING ON DOCTORS ORDERS . BED LOCKED AND LOWEST POSITION . SEIZURE PRECAUTIONS. ALL SAFETY MEASURES IMPLEMENTED PER HOSPITAL PROTOCOL .
--- NOTE | 2019-10-22 10:58 | NUR ---
GATE WATCHMAN NOTES NOTIFIED [facility] FOR ADMITTING ORDERS PER DR. SAMUEL - REGULAR DIET. AND NOTIFIED ADMITTING ORDERS WILL BE DONE.
[2019-10-22 12:00] VITALS: BP 146/95
--- NOTE | 2019-10-22 14:44 | NUR ---
WRAPPING MACHINE HELPER NOTES PATIENT HAS ALOT OF ANXIETY. PATIENT IS STATING THAT ALL SNF JUST WANTED TO KICK HER OUT . PATIENT IS STATING THAT SHE ISNT GETTING THE CARE SHE NEEDS. PATIENT VENTING ABOUT PROBLEMS SHE HAS BEEN EXPERIENCING AND LEADS HER TO INCREASE HER ANXIETY. AFTER TALKING TO HER FOR 20 MINS. SHE SEEMS TO HAVE CALMED DOWN.
[2019-10-22] MEDS ORDERED: APIXABAN 2.5 MG TABLET PO SCH ×2 (15:00→17:00)
[2019-10-22] MEDS ORDERED: ALBUTEROL HALF STRENGTH 1.25 MG/3 ML VIAL.NEB NEB SCH (15:00)
[2019-10-22] MEDS: methylPREDNISolone SOD SUCC 125 MG/2ML VIAL IV SCH ×2 (15:17→23:01)
[2019-10-22] MEDS ORDERED: MAGNESIUM HYDROXIDE 30 ML UDC PO PRN (15:30)
[2019-10-22] MEDS ORDERED: Medication Not On Formulary EA (Melatonin 5 MG) PO SCH (15:30)
[2019-10-22] MEDS ORDERED: D5W 500 MG IV SCH (15:30)
[2019-10-22] MEDS ORDERED: [UNRECOGNIZED DRUG - OTHER] IV SCH (15:30)
[2019-10-22] MEDS ORDERED: BENZONATATE 100 MG CAPSULE PO PRN (15:30)
[2019-10-22] MEDS ORDERED: LEVOFLOXACIN IV SCH (15:30)
[2019-10-22] MEDS ORDERED: IPRATROPIUM NEB FS 0.5 MG/2.5 ML AMPUL.NEB IH PRN (15:30)
[2019-10-22] MEDS ORDERED: NITROGLYCERIN 0.4 MG/TAB BOTTLE SL PRN (15:30)
[2019-10-22] MEDS ORDERED: ALBUTEROL FS 2.5 MG/3 ML VIAL.NEB IH PRN (15:30)
[2019-10-22] MEDS ORDERED: LORAZEPAM 1 MG TABLET PO PRN (15:30)
[2019-10-22] MEDS ORDERED: ALBUTEROL HALF STRENGTH 1.25 MG/3 ML VIAL.NEB IH SCH (15:30)
[2019-10-22] MEDS ORDERED: GUAIFENESIN 300 MG/15 ML UDC PO PRN (15:30)
[2019-10-22] MEDS ORDERED: Z GUARD REMEDY 2 OZ OINT TP PRN (15:30)
[2019-10-22 16:00] VITALS: BP 140/96
[2019-10-22 16:06] LABS: ABG BASE EXCESS 1.7 mmol/L; ABG PCO2 45.6 mmHg (35.0-45.0); ABG PH 7.393 (7.350-7.450); ABG PO2 71.2 mmHg (75.0-100.0); AaDO2 45.7 mmHg; COHb 0.9 % (0.5-1.5); MetHb 0.5 % (0.0-1.5); O2Hb 92.7 % (94.0-97.0); SITE, ABG Left Brachial; VENT MODE, BG 1L NC
[2019-10-22] MEDS: IPRATROPIUM NEB FS 0.5 MG/2.5 ML AMPUL.NEB NEB SCH ×3 (16:19→23:17)
[2019-10-22] MEDS: CLONIDINE HCL 0.1 MG TABLET PO SCH (16:56)
[2019-10-22] MEDS: APIXABAN 5 MG TABLET PO SCH (16:57)
[2019-10-22] MEDS ORDERED: MISCELLANEOUS MED 1 EA EA PO SCH ×2 (17:00)
[2019-10-22] MEDS: TRAMADOL HCL 50 MG TABLET PO PRN ×2 (17:06→23:39)
[2019-10-22] MEDS: AZITHROMYCIN 500 MG in IV D5W 250 ML IV SCH (17:22)
--- NOTE | 2019-10-22 19:14 | NUR ---
NEGATIVE RESTORER NOTES PATIENT IS A/O X4 PATIENT IS RESTING COMFORTABLE IN BED. PATIENT HAS FAMILY BY BED SIDE PATIENT SATURATING WELL AT 99 % . PATIENT SHOWS NO SIGNS OF ACUTE RESPIRATORY DISTRESS. PATIENT SKIN IS INTACT. BED LOCKED AND LOWEST POSITION CALL LIGHT WITH IN REACH. ALL SAFETY MEASURE IMPLEMENTED PERHOSPITAL POLICY
--- NOTE | 2019-10-22 19:49 | NUR ---
MS RN OPENING NOTE RECEIVED PATIENT IN BED. A/OX3, VERY ANXIOUS. ON 2L.MIN VIA NASAL CANNULA. RESPIRATIONS ARE EVEN AND UNLABORED. NO S/S SOB NOTED. DENIES PAIN AT THIS TIME. PATIENT IS REQUESTING MAALOX, INFORMED HER THAT I WILL GRAB HER MEDICATION ONCE RECEIVED REPORT FROM ALL PATIENTS. IV ACCESS IN CHANTAL#20 PATENT AND SALINE LOCKED. EXTERNAL TELE MONITOR READS SR/ST 100S - 120S WITH PVCS. BED IS LOW AND LOCKED, HOB IN SEMI FOWLERS, SIDE RIALS UP X2. CALL LIGHT WITHIN REACH. FAMILY AT BEDSIDE. WILL CONTINUE TO MONITOR.
[2019-10-22 20:00] VITALS: BP_SYST 136; BP_SYST 155; BP_DIAS 59; BP_DIAS 86
[2019-10-22] MEDS: MAG HYDROX/AL HYDROX/SIMETH 30 ML UDC PO PRN (20:20)
[2019-10-22] MEDS: MUPIROCIN OINT 2% 22 GM TUBE SCH (20:20)
--- NOTE | 2019-10-22 20:28 | NUR ---
BENEFITS SPECIALIST NOTE ADMINISTERED PRN MAALOX D/T PATIENTS REQUEST. WILL CONTINUE TO MONITOR.
[2019-10-22] MEDS: ACETAMINOPHEN 325 MG TABLET PO PRN (20:52)
--- NOTE | 2019-10-22 20:52 | NUR ---
TELEVISION INSPECTOR NOTE ADMINISTERED PRN TYLENOL 650MG FOR SLIGHT TEMP 99.5. WILL CONTINUE TO MONITOR.
[2019-10-22] MEDS ORDERED: DOCUSATE SODIUM 100 MG CAPSULE PO SCH (22:00)
[2019-10-22] MEDS: ALBUTEROL HALF STRENGTH 1.25 MG/3 ML VIAL.NEB NEB SCH (23:17)
[2019-10-22] MEDS: ACETYLCYSTEINE 10% 3,000 MG/30 ML VIAL IH SCH (23:18)
--- NOTE | 2019-10-22 23:40 | NUR ---
WOOD CABINETMAKER NOTE ADMINISTERED PRN TRAMADOL 50MG FOR PAIN 8/10 IN LEFT SIDE OF ABDOMEN,. WILL CONTINUE TO MONITOR.
[2019-10-23] VITALS: BP 128/80
[2019-10-23 04:00] VITALS: BP 130/80
[2019-10-23] MEDS: ALBUTEROL HALF STRENGTH 1.25 MG/3 ML VIAL.NEB NEB SCH ×6 (04:01→22:34)
[2019-10-23] MEDS: IPRATROPIUM NEB FS 0.5 MG/2.5 ML AMPUL.NEB NEB SCH ×6 (04:01→22:34)
--- NOTE | 2019-10-23 04:38 | NUR ---
RED CROSS EXECUTIVE DIRECTOR NOTE CALL MD TO NOTIFY HIM THE PATIENT WANTS IBUPROFEN FOR HER RHEUMATOID ARTHRITIS PAIN. MD STATED OK TO GIVE IF ON HOME MEDS. PATIENT SENT HERE TO [facility] WITH NOT CURRENT HOME MEDS FROM [facility], CALLED FACILITY TO SEE IF THERE IS AN ACTIVE ORDER FOR IBUPROFEN. THERE IS AN ACTIVE ORDER FOR IBUPROFEN 400MG q6HR PRN. MADE MD AWARE, TELEPHONE ORDER FOR IBUPROFEN 400MG q6HR PRN READ BACK, NOTED AND CARRIED OUT.
[2019-10-23] MEDS ORDERED: IBUPROFEN 400 MG TABLET PO PRN (05:00)
[2019-10-23] MEDS: methylPREDNISolone SOD SUCC 125 MG/2ML VIAL IV SCH ×3 (06:30→23:25)
[2019-10-23] MEDS: PANTOPRAZOLE 40 MG TABLET.DR PO SCH (06:35)
--- NOTE | 2019-10-23 06:55 | NUR ---
SUPERVISOR AIRCRAFT CLEANING CLOSING NOTE PATIENT IN BED. A/OX3, REMAINS VERY ANXIOUS. ON 2L/MIN VIA NASAL CANNULA. RESPIRATIONS ARE EVEN AND UNLABORED. NO SOB NOTED. PAIN MANAGED THROUGHOUT NIGHT. IV ACCESS REMAINS IN CHANTAL#20 PATENT AND SALINE LOCKED. EXTERNAL TELE MONITOR READS SR/ST 100S - 120S WITH PVCS. BED REMAINS LOW AND LOCKED, HOB IN SEMI FOWLERS, SIDE RIALS UP X2. CALL LIGHT WITHIN REACH. WILL ENDORSE TO NEXT SHIFT.
[2019-10-23 07:12] LABS: HEMATOCRIT 38 % (33-45); LYMPHOCYTES # (AUTO) 0.3 /CMM (0.8-4.8); LYMPHOCYTES % (AUTO) 6.7 % (20.0-44.0); MEAN CORPUSCULAR HGB CONC 34 g/dl (31.0-36.0); MEAN CORPUSCULAR VOLUME 92 fL (82-100); MONOCYTES # (AUTO) 0.2 /CMM (0.1-1.30); MONOCYTES % (AUTO) 4.6 % (2.0-12.0); NEUTROPHILS # (AUTO) 4.1 /CMM (1.8-8.9); NEUTROPHILS % (AUTO) 88.7 % (43.0-81.0); PLATELET COUNT (AUTO) 211 /CMM (150-450); RED BLOOD CELL COUNT(AUTO) 4.14 MIL/uL (4.0-5.2); WHITE BLOOD COUNT (AUTO) 4.6 K/uL (4.3-11.0)
[2019-10-23 07:17] LABS: CALCIUM, SERUM 8.6 mg/dL (8.5-10.1); CREATININE 0.5 mg/dL (0.6-1.3); PHOSPHORUS 2.6 mg/dL (2.5-4.9); POTASSIUM 4.4 mmol/L (3.5-5.1)
--- NOTE | 2019-10-23 07:30 | NUR ---
DONOR RELATIONS COORDINATOR OPENING NOTE RECEIVED PATIENT IN BED RESTING COMFORTABLY IN MODERATE HIGH BACK REST. A/OX3. ON 2L/MIN VIA NASAL CANNULA. NO SIGNS OF DISTRESS NOTED AT THIS TIME. IV ACCESS ON CHANTAL#20 PATENT AND SALINE LOCKED. ON TELE MONITOR READS SR/ST 100'S. SAFETY MEASURES IN PLACE BED IN LOW AND LOCKED, HOB IN SEMI FOWLERS, SIDE RIALS UP X2. CALL LIGHT WITHIN REACH. WILL CONTINUE TO MONITOR.
[2019-10-23] MEDS: ACETYLCYSTEINE 10% 3,000 MG/30 ML VIAL IH SCH ×3 (07:35→22:35)
[2019-10-23 08:00] VITALS: BP 131/81
[2019-10-23] MEDS: FLUTICASONE PROPIONATE 16 GM BOTTLE NS SCH (08:35)
[2019-10-23] MEDS: MUPIROCIN OINT 2% 22 GM TUBE SCH ×2 (08:35→20:35)
[2019-10-23] MEDS: GABAPENTIN 300 MG CAPSULE PO SCH (08:35)
[2019-10-23] MEDS: FLUOXETINE HCL 20 MG CAPSULE PO SCH (08:36)
[2019-10-23] MEDS: FUROSEMIDE 20 MG TABLET PO SCH (08:36)
[2019-10-23] MEDS: MULTIVITAMINS,THERAGRAN 1 UDTAB TABLET PO SCH (08:36)
[2019-10-23] MEDS: CLONIDINE HCL 0.1 MG TABLET PO SCH ×3 (08:36→16:22)
[2019-10-23] MEDS: ARIPIPRAZOLE 5 MG TABLET PO SCH (08:37)
[2019-10-23] MEDS: AMLODIPINE BESYLATE 10 MG TABLET PO SCH (08:38)
[2019-10-23] MEDS: APIXABAN 5 MG TABLET PO SCH ×2 (08:39→16:25)
[2019-10-23] MEDS: DOCUSATE SODIUM 100 MG CAPSULE PO SCH ×2 (11:32→16:22)
[2019-10-23] MEDS: ACETAMINOPHEN 325 MG TABLET PO PRN (12:40)
[2019-10-23] MEDS: AZITHROMYCIN 500 MG in IV D5W 250 ML IV SCH (15:40)
[2019-10-23 16:00] VITALS: BP 153/82
[2019-10-23] MEDS: MAG HYDROX/AL HYDROX/SIMETH 30 ML UDC PO PRN (17:54)
--- NOTE | 2019-10-23 18:44 | NUR ---
RN CLOSING NOTES PATIENT IN BED RESTING COMFORTABLY IN MODERATE HIGH BACK REST. A/OX3. ON 2L/MIN VIA NASAL CANNULA. NO SIGNS OF DISTRESS NOTED THROUGHOUT THE SHIFT. IV ACCESS ON CHANTAL#20 PATENT AND INTACT, CURRENTLY ON SALINE LOCKED. SAFETY MEASURES IN PLACE BED IN LOW AND LOCKED POSITION WITH SIDE RAILS UP X2 , CALL LIGHT WITHIN REACH. WILL ENDORSE TO HEALTH AND WELLNESS DIRECTOR NURSE FOR DAX.
--- NOTE | 2019-10-23 19:58 | NUR ---
MS RN OPENING NOTES Patient received resting in bed a/o x4, able to make all needs known. She is on a high fowlers position on 2L O2 via NC. No signs of SOB or acute distress. No current complaints of pain or discomfort. IV located on CHANTAL #20 SL. Safety precautions are in place with bed in lowest position, side rails up x2, and call light within reach. Will continue to monitor.
[2019-10-23 20:00] VITALS: BP 142/70
[2019-10-23] MEDS: ZOLPIDEM TARTRATE 5 MG TABLET PO PRN (21:35)
--- NOTE | 2019-10-24 00:30 | NUR ---
MS RN NOTES PATIENT COMPLAINING OF ABDOMINAL PAIN. ADMINISTERED MAALOX PRN. WILL CONTINUE TO MONITOR.
[2019-10-24] MEDS: MAG HYDROX/AL HYDROX/SIMETH 30 ML UDC PO PRN ×3 (00:46→23:24)
[2019-10-24] MEDS: ACETAMINOPHEN 325 MG TABLET PO PRN (01:19)
--- NOTE | 2019-10-24 02:00 | NUR ---
MS RN NOTES PATIENT COMPLAINING OF CONSTIPATION AND ABDOMINAL PAIN. REQUESTED SUPPOSITORY. ADMINISTERED DULCOLAX PER PATIENT REQUEST. WILL CONTINUE TO MONITOR.
[2019-10-24] MEDS: BISACODYL SUPP (10 MG) 10 MG/SUPP.RECT SUPP.RECT RC PRN (02:16)
[2019-10-24] MEDS: ALBUTEROL HALF STRENGTH 1.25 MG/3 ML VIAL.NEB NEB SCH ×6 (03:34→23:30)
[2019-10-24] MEDS: IPRATROPIUM NEB FS 0.5 MG/2.5 ML AMPUL.NEB NEB SCH ×6 (03:35→23:30)
--- NOTE | 2019-10-24 05:49 | NUR ---
MS RN NOTES PATIENT COMPLAINING OF PAIN 9/10 ON JOINTS SUCH ANKLE, KNEES, JOINTS. GAVE HEAT PACKS ON PAINFUL AREAS. OFFERED TRAMADOL PRN, BUT PATIENT REFUSED SHE CLAIMS IT DOES NOT WORK. PATIENT REQUESTED NORCO FOR EFFECTIVE PAIN MEDICATION. CONTACTED DR. PARIKH AND HE ORDERED NORCO 5-325 Q6 PRN. WILL CONTINUE TO MONITOR.
[2019-10-24] MEDS: HYDROCODONE/APAP 5/325MG 1 EACH TABLET PO PRN ×2 (06:16→21:55)
[2019-10-24] MEDS: methylPREDNISolone SOD SUCC 125 MG/2ML VIAL IV SCH (06:34)
[2019-10-24] MEDS: PANTOPRAZOLE 40 MG TABLET.DR PO SCH (06:35)
--- NOTE | 2019-10-24 06:47 | NUR ---
MS RN CLOSING NOTES PATIENT CURRENTLY RESTING IN BED A/O x3. PATIENT IS ON 2L OF O2 VIA NC, BREATHING EVEN AND UNLABORED, NO COMPLAINTS OF SOB. NO ACUTE DISTRESS NOTED. NO CURRENT COMPLAITNS OF PAIN OR DISCOMFORT. BREATHING TREATMENT RECEIVED SCHEDULED AND NEEDED. IV LOCATED ON L UA #20 SL. ALL NEEDS WERE ATTENDED TO THROUGHOUT THE NIGHT. PATIENT WAS KEPT CLEAN AND DRY. SAFETY PRECAUTIONS IN PLACE WITH BED IN LOWEST POSITION ,CALL LIGHT WITHIN REACH, AND BREAKS ON. WILL ENDORSE TO ONCOMING SHIFT ABOUT DAX.
[2019-10-24] MEDS: ACETYLCYSTEINE 10% 3,000 MG/30 ML VIAL IH SCH ×3 (07:57→23:29)
[2019-10-24 08:00] VITALS: BP 140/76
--- NOTE | 2019-10-24 08:00 | NUR ---
RN NOTES RECEIVED PATIENT IN THE BED A/O X4, ON O22L NC, PATIENT HAS NO ACIUTE RESPIRATORY DISTRESS, V/S STABLE, ADMINISTERED SCHEDULED MEDICATION. MEDICATION WERE ADMINISTERED FOR PAIN EFFECTIVE., PATIENT ALSO GETTING BREATHING TX VIS RT. PATIENT TURN AND REPOSTION IN THE BED BY SELF, BUT UNABLE TO AMBULATE. PATIENT INCONTINENT OF BOWL/BLADDER . IV ACCSS ON LEFT UPPER SHOULDER,. CALL LIGHT WITHIN TO REACH. SAFETY PRECAUTION MAINTAINED ALL THE TIME.
[2019-10-24] MEDS: FLUOXETINE HCL 20 MG CAPSULE PO SCH (09:20)
[2019-10-24] MEDS: DOCUSATE SODIUM 100 MG CAPSULE PO SCH ×2 (09:20→17:54)
[2019-10-24] MEDS: AMLODIPINE BESYLATE 10 MG TABLET PO SCH (09:23)
[2019-10-24] MEDS: FUROSEMIDE 20 MG TABLET PO SCH (09:23)
[2019-10-24] MEDS: GABAPENTIN 300 MG CAPSULE PO SCH (09:23)
[2019-10-24] MEDS: CLONIDINE HCL 0.1 MG TABLET PO SCH ×3 (09:23→17:55)
[2019-10-24] MEDS: MULTIVITAMINS,THERAGRAN 1 UDTAB TABLET PO SCH (09:23)
[2019-10-24] MEDS: ARIPIPRAZOLE 5 MG TABLET PO SCH (09:23)
[2019-10-24] MEDS: APIXABAN 5 MG TABLET PO SCH ×2 (09:27→17:57)
[2019-10-24] MEDS: FLUTICASONE PROPIONATE 16 GM BOTTLE NS SCH (09:28)
[2019-10-24] MEDS: MUPIROCIN OINT 2% 22 GM TUBE SCH ×2 (09:28→20:40)
--- NOTE | 2019-10-24 09:34 | NUR ---
rn notes administered Maalox 30 mg po prm for stomachache per patient request, continued monitoring.
[2019-10-24] MEDS: ONDANSETRON HCL/PF 4 MG/2 ML VIAL IVP PRN (12:58)
[2019-10-24] MEDS: NA PHOS,M-B/NA PHOS,DI-BA 1 EA ENEMA RC PRN (12:59)
--- NOTE | 2019-10-24 12:59 | NUR ---
RN NOTES ADMINISTERED ZOFRAN 4 MG/ML IV PUSH, AND ENEMA FOR CONSTIPATION PER PATIENT REQUEST. CONTINUED MONITORING.
[2019-10-24] MEDS: methylPREDNISolone SOD SUCC 40 MG/ML VIAL IV SCH (13:01)
--- NOTE | 2019-10-24 15:00 | NUR ---
RN NOTES MEDICATION WERE ADMINISTERED FOR CONSTIPATION EFFECTIVE, NEEDS ATTENDED AND ANTICIPATED, CONTINUED MONITORING.
[2019-10-24 16:00] VITALS: BP 158/81
[2019-10-24] MEDS: AZITHROMYCIN 500 MG in IV D5W 250 ML IV SCH (17:56)
--- NOTE | 2019-10-24 18:30 | NUR ---
RN NOTES PATIENT IN THE BED, WAS COMPLAINING OF TIGHTNESS ON THE CHEST, COUGHING, BREATHING TREATMENT GETTING AT THIS TIME VIA RT, ADMINISTERED SCHEDULED MEDICATION. INFUSING ANTIBIOTIC 250 MG/ML ON LEFT SHOULDER AREA INTACT. PATIENT REFUSED PAIN. NEEDS ATTENDED AND ANTICIPATED, CALL LIGHT WITHIN TO REACH, ENDORSED ONCOMING NURSE FOLLOW PLAN OF CARE.
--- NOTE | 2019-10-24 19:30 | NUR ---
RN OPEN NOTES RECEIVED PATIENT AWAKE IN BED. A/O X4. NO SIGNS OF DISTRESS OR DISCOMFORT. BREATHING EVEN AND UNLABORED. ON 2LPM O2 VIA NC. IV ACCESS IN L SHOULDER, PATENT AND INTACT, NO SIGNS OF REDNESS OR INFILTRATION. BED IN LOW LOCKED POSITION WITH SIDE RAILS X2. CALL LIGHT WITHIN REACH. WILL CONTINUE TO MONITOR.
[2019-10-24 20:07] VITALS: BP 134/79
[2019-10-24] MEDS: ZOLPIDEM TARTRATE 5 MG TABLET PO PRN (20:42)
--- NOTE | 2019-10-24 20:42 | NUR ---
RN NOTES ADMINISTERED AMBIEN 5MG ORDERED AT PATIENT REQUEST. VSS. WILL CONTINUE TO MONITOR.
--- NOTE | 2019-10-24 21:55 | NUR ---
RN NOTES ADMINISTERED NORCO 5/325 ORDERED AT PATIENT REQUEST FOR LEFT LOWER ABD PAIN 08/05. VSS. WILL CONTINUE TO MONITOR.
--- NOTE | 2019-10-24 23:24 | NUR ---
RN NOTES ADMINISTERED MAALOX 30ML ORDERED AT PATIENT REQUEST FOR INDIGESTION. WILL CONTINUE TO MONITOR.
[2019-10-25] MEDS: ALBUTEROL HALF STRENGTH 1.25 MG/3 ML VIAL.NEB NEB SCH ×4 (03:24→14:59)
[2019-10-25] MEDS: IPRATROPIUM NEB FS 0.5 MG/2.5 ML AMPUL.NEB NEB SCH ×4 (03:24→14:59)
[2019-10-25] MEDS: HYDROCODONE/APAP 5/325MG 1 EACH TABLET PO PRN (03:50)
--- NOTE | 2019-10-25 03:50 | NUR ---
RN NOTES ADMINISTERED NORCO 5/325 ORDERED AT PATIENT REQUEST FOR LEFT LOWER ABD PAIN 07/06. VSS. WILL CONTINUE TO MONITOR.
[2019-10-25] MEDS: ACETAMINOPHEN 325 MG TABLET PO PRN (05:40)
--- NOTE | 2019-10-25 06:54 | NUR ---
RN CLOSING NOTES PATIENT AWAKE IN BED. A/O X4. NO SIGNS OF DISTRESS OR DISCOMFORT. BREATHING EVEN AND UNLABORED. ON 2LPM O2 VIA NC. IV ACCESS IN L SHOULDER, PATENT AND INTACT, NO SIGNS OF REDNESS OR INFILTRATION. ALL NEEDS MET. NO SIGNIFICANT CHANGES THROUGH THE NIGHT. KEPT CLEAN DRY AND COMFORTABLE. BED IN LOW LOCKED POSITION WITH SIDE RAILS X2. CALL LIGHT WITHIN REACH. WILL ENDORSE TO AM SHIFT FOR DAX.
[2019-10-25 07:09] LABS: EOSINOPHILS % (AUTO) 0.2 % (0.0-6.0); HEMATOCRIT 38 % (33-45); HEMOGLOBIN 12.6 g/dL (11.5-14.8); LYMPHOCYTES # (AUTO) 0.8 /CMM (0.8-4.8); LYMPHOCYTES % (AUTO) 17.7 % (20.0-44.0); MEAN CORPUSCULAR HGB CONC 33 g/dl (31.0-36.0); MEAN CORPUSCULAR VOLUME 94 fL (82-100); MONOCYTES # (AUTO) 0.6 /CMM (0.1-1.30); MONOCYTES % (AUTO) 13.1 % (2.0-12.0); NEUTROPHILS # (AUTO) 3.2 /CMM (1.8-8.9); PLATELET COUNT (AUTO) 205 /CMM (150-450); RED BLOOD CELL COUNT(AUTO) 4.07 MIL/uL (4.0-5.2); WHITE BLOOD COUNT (AUTO) 4.7 K/uL (4.3-11.0)
[2019-10-25 07:40] LABS: ALBUMIN 2.7 g/dL (3.4-5.0); BILIRUBIN,TOTAL 0.2 mg/dL (0.2-1.0); CALCIUM, SERUM 8.7 mg/dL (8.5-10.1); CREATININE 0.6 mg/dL (0.6-1.3); PHOSPHORUS 2.6 mg/dL (2.5-4.9); POTASSIUM 3.8 mmol/L (3.5-5.1); TOTAL PROTEIN, SERUM 5.3 g/dL (6.4-8.2)
[2019-10-25 08:00] VITALS: BP 125/84
[2019-10-25] MEDS: PANTOPRAZOLE 40 MG TABLET.DR PO SCH (08:19)
[2019-10-25] MEDS: CLONIDINE HCL 0.1 MG TABLET PO SCH ×3 (08:21→16:10)
[2019-10-25] MEDS: FUROSEMIDE 20 MG TABLET PO SCH (08:21)
[2019-10-25] MEDS: AMLODIPINE BESYLATE 10 MG TABLET PO SCH (08:21)
[2019-10-25] MEDS: FLUOXETINE HCL 20 MG CAPSULE PO SCH (08:21)
[2019-10-25] MEDS: ARIPIPRAZOLE 5 MG TABLET PO SCH (08:22)
[2019-10-25] MEDS: DOCUSATE SODIUM 100 MG CAPSULE PO SCH ×2 (08:22→16:07)
[2019-10-25] MEDS: MULTIVITAMINS,THERAGRAN 1 UDTAB TABLET PO SCH (08:22)
[2019-10-25] MEDS: GABAPENTIN 300 MG CAPSULE PO SCH (08:22)
[2019-10-25] MEDS: ONDANSETRON HCL/PF 4 MG/2 ML VIAL IVP PRN (08:29)
--- NOTE | 2019-10-25 08:30 | NUR ---
MS RN OPENING NOTES RECEIVED PT IN BED. AWAKE, ALERT AND ORIENTED X4. NO CARDIAC OR RESPIRATORY DISTRESS NOTED. NO COMPLAAINTS OF PAIN OR DISCOMFORT. BREATH SOUNDS CLEAR. BREATHING EVEN AND UNLABORED. PT INCONTINENT OF BOWEL AND BLADDER. IV SITE INTACT. G20. NO S/S OF INFECTION OR INFILTRATION NOTED. ALL DUE MEDS GIVEN THIS AM. TOLERATED WELL. NO ASE NOTED.
[2019-10-25] MEDS: MUPIROCIN OINT 2% 22 GM TUBE SCH (08:39)
[2019-10-25] MEDS: FLUTICASONE PROPIONATE 16 GM BOTTLE NS SCH (08:39)
[2019-10-25] MEDS: APIXABAN 5 MG TABLET PO SCH ×2 (08:43→16:13)
[2019-10-25] MEDS: methylPREDNISolone SOD SUCC 40 MG/ML VIAL IV SCH (08:44)
[2019-10-25] MEDS: ACETYLCYSTEINE 10% 3,000 MG/30 ML VIAL IH SCH (08:54)
[2019-10-25] MEDS: MAG HYDROX/AL HYDROX/SIMETH 30 ML UDC PO PRN ×2 (11:07→16:07)
--- NOTE | 2019-10-25 11:07 | NUR ---
RN NOTES ADMINISTERED MAALOX FOR STOMACHACHE PER PATIENT REQUEST.
[2019-10-25] MEDS: BISACODYL SUPP (10 MG) 10 MG/SUPP.RECT SUPP.RECT RC PRN (12:55)
--- NOTE | 2019-10-25 12:55 | NUR ---
rn notes administered rectal suppository per patient request, continued monitoring.
[2019-10-25] MEDS: NA PHOS,M-B/NA PHOS,DI-BA 1 EA ENEMA RC PRN (13:53)
[2019-10-25] MEDS ORDERED: APIX5TAB PO (14:51)
[2019-10-25] MEDS ORDERED: DOCU-270 PO (14:51)
[2019-10-25] MEDS ORDERED: METH4TAB3 PO (14:51)
[2019-10-25] MEDS ORDERED: ACETYLCYSTEINE 10% SOLN 400 MG/4 ML VIAL IH SCH (15:30)
[2019-10-25 16:00] VITALS: BP 124/86
[2019-10-25] MEDS ORDERED: AZITHROMYCIN 250 MG TABLET PO SCH (16:00)
[2019-10-25 16:10] VITALS: BP 124/86
--- NOTE | 2019-10-25 16:13 | NUR ---
rn notes administered maalox 30 ml for stomachache, also administered scheduled medication, continued monitoring.
--- NOTE | 2019-10-25 18:55 | NUR ---
PHARMACY STUDENT NOTES PATIENT DISCHARGING AT THIS TIME GOING BACK TO THE SNF. PATIENT A/O X3, STABLE, V/S WNL. PATIENT REFUSED PAIN AT THIS TIME. MED RECONCILIATION AND DISCHARGE ORDER REVIEWED AND EXPLAINED TO. REPORT GIVEN SNF RN YOLI. RN VERBALIZED UNDERSTANDING. BELONGING WITH THE PATIENT. PATIENT SIGN PAPERWORK. PATIENT WILL FOLLOW SNF CLINICAL QUALITY ASSURANCE SPECIALIST. FAMILY AWARE OF DISCHARGE PLANING. PATIENT FOREST MANAGEMENT TEACHER BY AMBULANCE.
== END 2019-10-25 18:55 | DRG 189 ==
LOC: ER 04:20 → TELE 08:28 → MED 10-23 09:10
PROVIDERS: ADMIT Internal Medicine; ATTEND Internal Medicine
DX: J96.00 Acute respiratory failure, unspecified whether with hypoxia or hypercapnia (principal); J44.1 Chronic obstructive pulmonary disease with (acute) exacerbation; Z86.711 Personal history of pulmonary embolism; Z85.3 Personal history of malignant neoplasm of breast; Z86.718 Personal history of other venous thrombosis and embolism; Z87.891 Personal history of nicotine dependence; I50.9 Heart failure, unspecified; G89.29 Other chronic pain; I11.0 Hypertensive heart disease with heart failure; G20 Parkinson's disease; F02.80 Dementia in other diseases classified elsewhere, unspecified severity, without behavioral disturbance, psychotic disturbance, mood disturbance, and anxiety; Z88.8 Allergy status to other drugs, medicaments and biological substances; Z79.899 Other long term (current) drug therapy; Z79.51 Long term (current) use of inhaled steroids; Z79.01 Long term (current) use of anticoagulants; G47.33 Obstructive sleep apnea (adult) (pediatric); E03.9 Hypothyroidism, unspecified; E66.01 Morbid (severe) obesity due to excess calories; F41.9 Anxiety disorder, unspecified; F25.9 Schizoaffective disorder, unspecified
CPT/HCPCS: 36415; 36600; 71045-TC; 80048-TC; 80053-TC; 80061-TC; 80076-TC; 80305; 81000-TC; 82803-TC; 83605-TC; 83735-TC; 83880; 84100-TC; 84484-TC; 85025-TC; 87040-TC; 87081-TC; 93307-TC; 94799-TC; G0378; G0480; J0456; J1956; J2060; J2405; J2920; J2930; J7050; J7060

== ENCOUNTER 2019-12-05 23:02 | Emergency (ER) | payer MEDICARE, OTHER ==
[~2019-12-05] VITALS: Ht 165.1 cm; Wt 117.9 kg
[~2019-12-05 23:02] MED LIST changes: +ACET-73 PO; -APIX2.5T PO; +APIX5TAB PO; +CRAN3875 PO; +CRAN400C PO; -FLUT1BLS IH; +FURO20TA4 PO; -IBUP-1953 PO; -LEVO500P10 IV; +MELA5TAB PO; +METH4TAB3 PO; +TYL2T PO
--- NOTE | 2019-12-05 23:29 | NUR ---
LAURENT FROM [facility] C/O BILATERAL BILAT LEG PAIN REC'D 650MG TYLENOL AND BACLOFEN DOCUMENTATION COORDINATOR, NO RELIEF. DENIES RECENT TRAUMA. PT W/ HX OF RESTLESS LEG SYNDROME. PT ALERT AND ORIENTD . ASSISYED TO THE BED . VSS .WILL CONT TO MONITOR
--- NOTE | 2019-12-06 00:12 | NUR ---
AT THE BED SIDE
[2019-12-06] MEDS ORDERED: MORPHINE SULFATE INJ 2 MG/ML DISP.SYRIN ONE (00:15)
[2019-12-06] MEDS ORDERED: MORPHINE SULFATE INJ 4 MG/ML DISP.SYRIN ONE (00:15)
--- NOTE | 2019-12-06 00:23 | NUR ---
[facility] ETA 0130 TRIP#[id number]
[2019-12-06] MEDS ORDERED: MORPHINE SULFATE INJ 2 MG/ML DISP.SYRIN IM ONE (00:30)
--- NOTE | 2019-12-06 01:20 | NUR ---
Patient is resting comfortably in bed with eyes closed. Easily aroused. VSS. no s/s or c/o pain or discomfort noted, awaiting for the transpo
--- NOTE | 2019-12-06 01:24 | NUR ---
report given to Linda at [facility]
--- NOTE | 2019-12-06 01:36 | NUR ---
pt was transferred back to the SNF in stable condition. picked up by Luis VIA MARLYN.
[2019-12-06 01:57] VITALS: BP 103/68
== END 2019-12-06 01:36 | disposition home or self-care (01) ==
LOC: ER 23:02
DX: M79.604 Pain in right leg (principal); M79.605 Pain in left leg; G89.29 Other chronic pain; R56.9 Unspecified convulsions; G20 Parkinson's disease; F02.80 Dementia in other diseases classified elsewhere, unspecified severity, without behavioral disturbance, psychotic disturbance, mood disturbance, and anxiety; I10 Essential (primary) hypertension; K21.9 Gastro-esophageal reflux disease without esophagitis; Z85.3 Personal history of malignant neoplasm of breast; Z88.8 Allergy status to other drugs, medicaments and biological substances; Z79.899 Other long term (current) drug therapy
CPT/HCPCS: 96372; 99283; J2270 ×2